=== PATIENT | male | born 1980 | race Caucasian/White ===

== ENCOUNTER 2018-02-08 13:31 | Emergency (ER) | payer OTHER, MEDICAID ==
[~2018-02-08] VITALS: Ht 180.3 cm; Wt 108.9 kg
[~2018-02-08 13:31] MED LIST: METO25TA5 PO; SERT25TA84 PO; TEMA15CA91 PO
[2018-02-08 13:41] VITALS: BP 113/60
== END 2018-02-08 18:38 | disposition home or self-care (01) ==
LOC: ER 13:31
DX: B34.9 Viral infection, unspecified (principal); E11.9 Type 2 diabetes mellitus without complications; I10 Essential (primary) hypertension; F17.210 Nicotine dependence, cigarettes, uncomplicated
CPT/HCPCS: 71046; 93005

== ENCOUNTER 2018-02-17 17:54 | Emergency (ER) | payer OTHER, MEDICAID ==
[~2018-02-17] VITALS: Ht 180.3 cm; Wt 99.8 kg
[2018-02-17 18:58] LABS: Urine Bacteria NONE SEEN /hpf (None Seen); Urine Blood Negative /uL (Negative); Urine Mucus FEW (None Seen); Urine Specific Gravity 1.021 (1.001-1.035); Urine WBC 1 /hpf (0 - 3)
[2018-02-17 19:09] LABS: Alcohol, Urine < 3.0 mg/dL (0-5); Amphetamine Screen, Urine NEGATIVE (NEGATIVE); Barbiturate Scree,Urine NEGATIVE (NEGATIVE); Benzodiazephine Screen, Urine NEGATIVE (NEGATIVE); Cannabinoid Screen, Urine NEGATIVE (NEGATIVE); Cocaine Screen, Urine NEGATIVE (NEGATIVE); Opiate Scree,Urine NEGATIVE (NEGATIVE); Phencyclidine Screen, Urine NEGATIVE (NEGATIVE)
[2018-02-17 23:18] LABS: Basophils # (auto) 0.1 uL; Basophils % (auto) 0.9 % (0.0-2.0); Eosinophils # (auto) 0.4 uL; Eosinophils % (auto) 4.4 % (0.0-7.0); Hematocrit 36.7 % (41.0-53.0); Hemoglobin 12.6 g/dL (13.5-17.5); Lymphocytes % (auto) 37.1 % (10.0-50.0); Mean Corpuscular Hemoglobin 29.5 pg (28.0-32.0); Mean Corpuscular Hgb Conc. 34.3 g/dL (32.0-36.0); Mean Corpuscular Volume 85.9 fL (80.0-100.0); Monocytes # (auto) 0.6 uL; Neutrophils # (auto) 4.1 uL; Neutrophils % (auto) 50.6 % (37.0-80.0); Platelet Count (auto) 204 10^3/uL (140-450); Red Blood Cells 4.27 10^6/uL (4.5-5.90); Red Cell Distribution Width 14.8 % (11.8-14.3); White Blood Cell 8.2 10^3/uL (4.4-10.8)
[2018-02-17 23:32] LABS: Albumin 3.2 g/dL (3.4-5.0); BUN/Creatinine Ratio 15.6; Potassium 3.3 mmol/L (3.5-5.1)
[2018-02-17 23:35] LABS: Bilirubin, Total 0.3 mg/dL (0.2-1.0); Total Protein 5.9 g/dL (6.4-8.2)
[2018-02-18] MEDS ORDERED: HYDROcodone-ACET 7.5/325MG TAB PO ONE (01:45)
[2018-02-18] MEDS ORDERED: POTASSIUM CHL 20 Meq TABLET PO ONE (04:45)
[2018-02-18 04:46] VITALS: BP 128/72
== END 2018-02-18 05:04 | disposition home or self-care (01) ==
LOC: EDUNIT# 17:55 → ER 17:55
DX: R55 Syncope and collapse (principal); E87.6 Hypokalemia; R51 Headache
CPT/HCPCS: 36415; 70450; 71045; 80053; 80307; 81001; 82962; 85025; 93005

== ENCOUNTER 2018-02-28 16:16 | Emergency (ER) | payer OTHER, MEDICAID ==
[~2018-02-28] VITALS: Ht 180.3 cm; Wt 99.8 kg
[2018-02-28] MEDS ORDERED: SODIUM CHLORIDE 0.9% 1,000 ML IV ONE (16:30)
[2018-02-28] MEDS ORDERED: ONDANSETRON HCL 4 MG/2 ML VIAL IV ONE ×2 (16:30→19:00)
[2018-02-28] MEDS ORDERED: MORPHINE SULFATE 8mg/ml INJ SDV IV ONE ×2 (16:30→19:00)
[2018-02-28] MEDS ORDERED: MORPHINE SULFATE INJECTION 1 ML ONE ×2 (17:04→19:49)
[2018-02-28 17:55] LABS: INR 0.89 (0.9-1.15); Prothrombin Time 9.6 sec (9.27-12.13)
[2018-02-28 18:01] LABS: Alanine Aminotransferase 23 U/L (16-61); Albumin 3.6 g/dL (3.4-5.0); Anion Gap 8 (5-15); Aspartate Aminotransferase 10 U/L (15-37); BUN/Creatinine Ratio 9.9; Blood Urea Nitrogen 9 mg/dL (7-18); Calcium 8.6 mg/dL (8.5-10.1); Carbon Dioxide 24 mmol/L (21-32); Chloride 111 mmol/L (98-107); GFR African American 120 mL/min; GFR Non-African American 99 mL/min; Glucose 122 mg/dL (74-106); Magnesium 2.1 mg/dL (1.6-2.6); Potassium 3.3 mmol/L (3.5-5.1); Sodium 143 mmol/L (136-145)
[2018-02-28 18:06] LABS: Alkaline Phosphatase 64 U/L (45-117); Bilirubin, Total 0.4 mg/dL (0.2-1.0); Total Protein 6.7 g/dL (6.4-8.2)
[2018-02-28 18:12] VITALS: BP 122/71
[2018-02-28 20:38] LABS: Basophils # (auto) 0.1 uL; Basophils % (auto) 0.6 % (0.0-2.0); Eosinophils # (auto) 0.1 uL; Eosinophils % (auto) 1.3 % (0.0-7.0); Hematocrit 42.8 % (41.0-53.0); Hemoglobin 14.7 g/dL (13.5-17.5); Lymphocytes # (auto) 2.5 uL; Mean Corpuscular Hemoglobin 29.5 pg (28.0-32.0); Mean Corpuscular Hgb Conc. 34.4 g/dL (32.0-36.0); Mean Corpuscular Volume 85.9 fL (80.0-100.0); Monocytes # (auto) 0.8 uL; Monocytes % (auto) 7.6 % (0.0-12.0); Neutrophils # (auto) 7.2 uL; Neutrophils % (auto) 67.5 % (37.0-80.0); Nucleated Red Blood Cells % 0.1 %; Platelet Count (auto) 238 10^3/uL (140-450); Red Blood Cells 4.98 10^6/uL (4.5-5.90); Red Cell Distribution Width 14.4 % (11.8-14.3); White Blood Cell 10.7 10^3/uL (4.4-10.8)
== END 2018-02-28 21:13 | disposition home or self-care (01) ==
LOC: ER 16:16 → MERGE 16:16 → EDBD 16:16 → ER 20:01
DX: R07.89 Other chest pain (principal); J44.9 Chronic obstructive pulmonary disease, unspecified; E11.9 Type 2 diabetes mellitus without complications; I10 Essential (primary) hypertension; F17.210 Nicotine dependence, cigarettes, uncomplicated; Z86.73 Personal history of transient ischemic attack (TIA), and cerebral infarction without residual deficits; Z59.0 Homelessness
CPT/HCPCS: 36415; 71046; 80053; 83735; 84484; 85025; 85610; 85730; 93005; 94761; 96361; 96374; 96375; 96376; 99285; J2270; J2405; J7030